=== PATIENT | male | born 1975 | race African-American/Black ===

== ENCOUNTER 2018-04-08 12:46 | Emergency (ER) | payer MEDICAID, MEDICARE ==
[~2018-04-08] VITALS: Ht 188 cm; Wt 76.2 kg
[~2018-04-08 12:46] MED LIST: CLINDAMYCIN HC300 MG ORAL; GABAPENTIN100 MG PO; HYDROCORTISONE28 G2 TP; KEFLEX500 MG PO; NAPROXEN375 MG PO; OXYCODONE IR15 MG PO; PAMELOR10 MG PO
[2018-04-08 13:16] VITALS: BP 103/66
--- NOTE | 2018-04-08 13:41 | NUR ---
ED Nurse Note: patient walked into ED. need meds refilled, hasnt had since last week. relates having a itching rash x3 weeks
--- NOTE | 2018-04-08 13:51 | Emergency Room Report ---
History of Present Illness General Chief Complaint: Medication Refill Source: Patient Present Illness HPI 42-year-old male patient presents the ER complaining of rash for the past 3 weeks and requesting refill of medications. Patient states rash started present for 3 weeks, states extremely pruritic. Denies fever, chest pain, shortness of breath. Also requesting refill of for medications, including Abilify 20 mg, buspirone 20 mg, albuterol and Advair inhalers. States that he takes the Abilify and buspirone for paranoid schizophrenia and anxiety respectively, states takes albuterol and Advair inhaler for asthma symptoms. Denies asthma symptoms currently. States has not taken medication for the past few days. Denies thoughts of hurting himself or others. Denies other acute aggravating or relieving symptoms. Allergies: Coded Allergies: BENZTROPINE MESYLATE (Verified Allergy, Unknown, 10/08/13) HALOPERIDOL (Verified Allergy, Unknown, 10/08/13) HALOPERIDOL LACTATE (Verified Allergy, Unknown, 10/08/13) SULFA (SULFONAMIDE ANTIBIOTICS) (Verified Allergy, Unknown, 10/08/13) TRAMADOL (Verified Allergy, Unknown, 10/08/13) Patient History Past Medical History: see triage record Reviewed Nursing Documentation: PMH: Agreed; PSxH: Agreed Nursing Documentation-PMH Past Medical History: No History, Except For Hx Neurological Problems: Yes - chronic pain Review of Systems All Other Systems: negative except mentioned in HPI Physical Exam Vital Signs Date Time Temp Pulse Resp B/P (MAP) Pulse Ox O2 Delivery O2 Flow Rate FiO2 04/08/18 13:16 99.0 93 20 103/66 98 Room Air Sp02 EP Interpretation: reviewed, normal General Appearance: well appearing, no apparent distress, alert, GCS 15, non- toxic Head: normocephalic, atraumatic Eyes: bilateral eye normal inspection, bilateral eye PERRL ENT: hearing grossly normal, normal pharynx, no angioedema, normal voice, uvula midline, moist mucus membranes Neck: full range of motion Respiratory: lungs clear, normal breath sounds, no rhonchi, no respiratory distress, no accessory muscle use, no wheezing, speaking full sentences Cardiovascular #1: regular rate, rhythm, no edema Gastrointestinal: non tender, soft, no mass, non-distended, no guarding, no rebound Genitourinary: no CVA tenderness Musculoskeletal: back normal, digits/nails normal, gait/station normal, normal range of motion, non-tender Neurologic: alert, oriented x3, responsive, motor strength/tone normal, sensory intact Psychiatric: mood/affect normal Skin: rash - Hyperpigmented macules and excoriations, linear excoriations, no surrounding erythema or edema Lymphatic: no adenopathy Medical Decision Making PA Attestation Dr. Salmon is my supervising Physician whom patient management has been discussed with. Diagnostic Impression: Primary Impression: Encounter for medication refill Additional Impression: Rash and other nonspecific skin eruption ER Course pt. presents to the ED requesting prescription refill. Initial diagnosis considered include but not limited to medication refill, scabies, contact dermatitis, fungal infection, eczema, allergic reaction. Vital signs: are WNL, pt. is afebrile ORDERS: PE shows rash, remainder of physical exam benign, denies shortness of breath, lungs clear to auscultation. Informed patient would provide refill of Abilify, albuterol, Advair, would not provide refill of buspirone, needs to follow-up with mental health urgent care or primary care provider for further refills of medications. Provided with contact information for mental health urgent cares. Rash consistent with possible scabies, will provide patient with treatment. Advised patient to take Claritin during the day and Benadryl at night for itching symptoms. Wash all clothes and bedding. Contact primary care provider for further treatment. Informed patient ER cannot provide refills in the future; followup, management and prescription of long-term medications must be performed by primary care provider. DISCHARGE: At this time pt is stable for d/c to home. Patient is resting comfortably, in no acute distress, nontoxic appearing, talking without difficulty. Patient to take medications as instructed Will provide with patient care instructions and any necessary prescriptions. Care plan and follow-up instructions provided. Patient instructed to follow-up with primary care provider in 3 - 5 days. Patient questions asked and answered. Patient reports understanding and agreement to treatment plan. ER precautions given. Patient instructed to return to ER immediately for any new or worsening of symptoms including but not limited to increasing SOB, persistent fever. - Please note that this Emergency Department Report was dictated using Clavistercell manager technology software, occasionally this can lead to erroneous entry secondary to interpretation by the dictation equipment. Last Vital Signs Date Time Temp Pulse Resp B/P (MAP) Pulse Ox O2 Delivery O2 Flow Rate FiO2 04/08/18 13:16 99.0 93 20 103/66 98 Room Air Disposition: HOME, SELF-CARE Condition: Stable Scripts Permethrin* (ELIMITE*) 60 Gm Cream..g. 1 APPLIC TOPIC ONCE, #60 GM 0 Refills Apply cream from head to toe; leave on for 8-14 hours before washing off with water; may reapply in 1 week if live mites appear. Prov: Ha Regan 04/08/18 Fluticasone/Salmeterol (ADVAIR HFA 115-21 MCG INHALER) 12 Gm Hfa.aer.ad 1 PUFFS INH EVERY 12 HOURS, #1 EA Prov: Ha Regan 04/08/18 Albuterol Sulfate* (ALBUTEROL SULFATE MDI*) 8.5 Gm Hfa.aer.ad 2 PUFF INH Q6H, #1 INH 0 Refills Prov: Ha Regan 04/08/18 Aripiprazole* (ABILIFY*) 20 Mg Tablet 20 MG ORAL DAILY, #15 TAB Prov: Ha Regan 04/08/18 Patient Instructions: Medicine Refill at the Emergency Department, Scabies, Pediatric Additional Instructions: Followup with primary care provider in 3 -5 days. Request referral to dermatology as needed. Follow-up with mental health professional and/or mental health urgent care for further evaluation and treatment. Do not scratch or itch. Apply cool compresses to affected area. Wash all clothes and bedding. Take medications as directed. SE Benadryl drowsiness, do not take prior to drinking, driving, operating heavy machinery. Take Claritin during the day and Benadryl at night for itching symptoms. Patient questions asked and answered. ER precautions given, patient instructed to return to ER immediately for any new or worsening of symptoms. [facility] Ha Regan Apr 08, 2018 13:51
[2018-04-08] MEDS ORDERED: ALBUTEROL SULF8.5 GM INH (13:59)
[2018-04-08] MEDS ORDERED: ABILIFY20 MG ORAL (13:59)
[2018-04-08] MEDS ORDERED: PERMETHRIN60 GM TOPIC (13:59)
[2018-04-08] MEDS ORDERED: ADVAIR HFA 115-12 GM INH (13:59)
[2018-04-08 15:26] VITALS: BP 103/66
--- NOTE | 2018-04-08 15:28 | NUR ---
ED Nurse Note: Patient is being discharged, cleared by ER PA. Discharge instructions/paper/prescription given, explained, patient verbalized understanding, received signature on the paper. ID band removed. patient provided with sandwich/juice. patient stated that he is going back to [facility], that is the [place] [facility] that he resides, he showed the ID card for that, patient ambulated out of ED steady gait with all his belonging stating that he can take public transportation.
== END 2018-04-08 14:27 | disposition home or self-care (01) ==
LOC: EMR 13:50
DX: Z76.0 Encounter for issue of repeat prescription (principal); R21 Rash and other nonspecific skin eruption; F20.0 Paranoid schizophrenia; F41.9 Anxiety disorder, unspecified; J45.909 Unspecified asthma, uncomplicated; Z88.2 Allergy status to sulfonamides; Z88.5 Allergy status to narcotic agent; G89.29 Other chronic pain
CPT/HCPCS: 99282

== ENCOUNTER 2018-09-01 12:15 | Emergency (ER) | payer MEDICARE, MEDICAID ==
[~2018-09-01] VITALS: Ht 188 cm; Wt 77.1 kg
[~2018-09-01 12:15] MED LIST changes: +ABILIFY20 MG ORAL; +ADVAIR HFA 115-12 GM INH; +ALBUTEROL SULF8.5 GM INH; +PERMETHRIN60 GM TOPIC
[2018-09-01] MEDS ORDERED: TRUVADA 200 MG1 EAC1 ORAL (12:26)
--- NOTE | 2018-09-01 12:44 | Emergency Room Report ---
History of Present Illness General Chief Complaint: Skin Rash/Abscess Source: Patient Present Illness HPI 43-year-old male with history of HIV x8 years and paranoid schizophrenia x10 years here requesting an medication refill on his Abilify and Truvada. Patient reports that he last saw his psychiatrist and his primary care provider 2 months ago and and is in the process of changing his insurance. Patient took both Abilify and Truvada last 2 days ago. Denies visual and auditory hallucinations. Denies SI and HI. Patient also complains of multiple lesions on his arms and his knee and he keeps squeezing them saying that I need to drain them. Patient reports that he has had those for over a long time however it is not pruritic nor painful. Denies fever and chills, shortness of breath, palpitation, nausea vomiting, abdominal pain. Patient does not have the bottles of his medications with him Allergies: Coded Allergies: BENZTROPINE MESYLATE (Verified Allergy, Unknown, 10/08/13) HALOPERIDOL (Verified Allergy, Unknown, 10/08/13) HALOPERIDOL LACTATE (Verified Allergy, Unknown, 10/08/13) SULFA (SULFONAMIDE ANTIBIOTICS) (Verified Allergy, Unknown, 10/08/13) TRAMADOL (Verified Allergy, Unknown, 10/08/13) Patient History Past Medical History: see triage record Past Surgical History: unable to obtain Pertinent Family History: none Immunizations: UTD Reviewed Nursing Documentation: PMH: Agreed; PSxH: Agreed Nursing Documentation-PMH Past Medical History: No History, Except For Hx Cardiac Problems: No - HIV Hx Hypertension: No Hx Pacemaker: No Hx Asthma: Yes Hx COPD: No Hx Diabetes: No Hx Cancer: No Hx Gastrointestinal Problems: No Hx Dialysis: No History Of Psychiatric Problem: Yes - Paranoid Schizophrenia Hx Neurological Problems: Yes - chronic pain, neuropathy Hx Cerebrovascular Accident: No Hx Seizures: No Review of Systems All Other Systems: negative except mentioned in HPI Physical Exam Vital Signs Date Time Temp Pulse Resp B/P (MAP) Pulse Ox O2 Delivery O2 Flow Rate FiO2 09/01/18 12:22 98.1 79 16 120/75 (90) 98 Room Air Sp02 EP Interpretation: reviewed, normal General Appearance: normal inspection, well appearing Head: normocephalic, atraumatic Eyes: bilateral eye normal inspection, bilateral eye PERRL ENT: normal ENT inspection, normal pharynx Neck: normal inspection, full range of motion, supple Respiratory: normal inspection, chest non-tender, lungs clear, no wheezing Cardiovascular #1: normal inspection, no edema, no murmur, normal capillary refill Gastrointestinal: normal inspection, non tender, soft Rectal: deferred Genitourinary: no CVA tenderness Musculoskeletal: back normal, digits/nails normal, gait/station normal Neurologic: normal inspection, alert, oriented x3, responsive Psychiatric: normal inspection, judgement/insight normal, memory normal, no suicidal/homicidal ideation, no delusions Skin: warm/dry, rash - Multiple flat macular lesions on arms and knee no pus drainage noted however patient keeps picking on them. Lymphatic: normal inspection, no adenopathy Medical Decision Making PA Attestation All my diagnosis and treatment plans were reviewed ad discussed with my supervising physician Dr. Hyde Diagnostic Impression: Primary Impression: Medication refill Additional Impressions: HIV (human immunodeficiency virus infection) Schizophrenia Staphylococcal infection of skin ER Course 43-year-old male with history of HIV x8 years and paranoid schizophrenia x10 years here requesting an medication refill on his Abilify and Truvada. Patient reports that he last saw his psychiatrist and his primary care provider 2 months ago and and is in the process of changing his insurance. Patient took both Abilify and Truvada last 2 days ago. Denies visual and auditory hallucinations. Denies SI and HI. Patient also complains of multiple lesions on his arms and his knee and he keeps squeezing them saying that I need to drain them. Patient reports that he has had those for over a long time however it is not pruritic nor painful. Denies fever and chills, shortness of breath, palpitation, nausea vomiting, abdominal pain. Patient does not have the bottles of his medications with him Ddx considered but are not limited to: Staph infection of skin, cellulitis, eczema, HIV, paranoid schizophrenia currently symptomatic, paranoid schizophrenia asymptomatic Vital signs: are WNL, pt. is afebrile H&PE are most consistent with: Paranoid schizophrenia asymptomatic, HIV positive, localized Staphylococcus infection of the skin ORDERS: Truvada for 7-day supply, Abilify for 7-day supply, Keflex, triamcinolone cream I decided the patient needs to be treated with antibiotics due to picking on the lesions and also low immune status due to his HIV status ED INTERVENTIONS: None required at this time. DISCHARGE: At this time pt. is stable for d/c to home. Will provide printed patient care instructions, and any necessary prescriptions. Care plan and follow up instructions have been discussed with the patient prior to discharge. I gave patient a list of different clinics to walk-in for establishing a new primary doctor and recieving his medications Last Vital Signs Date Time Temp Pulse Resp B/P (MAP) Pulse Ox O2 Delivery O2 Flow Rate FiO2 09/01/18 12:22 98.1 79 16 120/75 (90) 98 Room Air Disposition: HOME, SELF-CARE Condition: Stable Scripts Triamcinolone Acet (Triamcinolone Acetonide) 80 Gm Cream..g. 2 GM APPLIC TID, #80 GM Prov: David Thorne 09/01/18 Emtricitabine/Tenofovir (Truvada 200 mg-300 mg Tablet) 1 Each Tablet 1 TAB ORAL DAILY for 7 Days, #7 TAB Prov: David Thorne 09/01/18 Aripiprazole* (ABILIFY*) 20 Mg Tablet 20 MG ORAL DAILY for 7 Days, #7 TAB Prov: David Thorne 09/01/18 Cephalexin* (KEFLEX*) 500 Mg Capsule 500 MG ORAL EVERY 6 HOURS for 7 Days, #28 CAP Prov: David Thorne 09/01/18 Referrals: [facility] + [facility] Psych ER - Peds ER - Patient Instructions: HIV Infection and AIDS, Schizophrenia, Staphylococcal Infection Additional Instructions: Follow-up with a primary care provider and the clinic today for further assessment and medical evaluation David Thorne Sep 01, 2018 12:44
[2018-09-01] MEDS ORDERED: ABILIFY20 MG ORAL (12:47)
[2018-09-01] MEDS ORDERED: CEPHALEXIN500 MG ORAL (12:47)
[2018-09-01] MEDS ORDERED: TRUVADA1 TAB ORAL (12:47)
[2018-09-01] MEDS ORDERED: KENALOG 0.1% CR15 GM APPLIC (12:47)
[2018-09-01 12:59] VITALS: BP 121/72
== END 2018-09-01 12:55 | disposition home or self-care (01) ==
LOC: EMR 12:32
DX: Z76.0 Encounter for issue of repeat prescription (principal); B20 Human immunodeficiency virus [HIV] disease; F20.9 Schizophrenia, unspecified; B95.8 Unspecified staphylococcus as the cause of diseases classified elsewhere; Z88.2 Allergy status to sulfonamides; Z88.8 Allergy status to other drugs, medicaments and biological substances; G62.9 Polyneuropathy, unspecified
CPT/HCPCS: 99282

== ENCOUNTER 2019-03-01 18:28 | Emergency (ER) | payer MEDICARE, MEDICAID ==
[~2019-03-01] VITALS: Ht 188 cm; Wt 74.8 kg
[~2019-03-01 18:28] MED LIST changes: +CEPHALEXIN500 MG ORAL; +KENALOG 0.1% CR15 GM APPLIC; +TRUVADA 200 MG1 EAC1 ORAL; +TRUVADA1 TAB ORAL
--- NOTE | 2019-03-01 18:44 | NUR ---
ED Nurse Note: Patient was called, not in the waiting room.
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
[2019-03-01 19:12] VITALS: BP 109/66
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
[2019-03-01] MEDS ORDERED: VOLTAREN100 G1 TP (20:54)
[2019-03-01] MEDS ORDERED: IBUPROFEN600 MG ORAL (20:54)
[2019-03-01 21:00] VITALS: BP 109/66
--- NOTE | 2019-03-01 21:00 | NUR ---
ER DISCHARGE NOTE: Patient is cleared to be discharged per ERMD, pt is aox4, on room air, with stable vital signs. pt was given dc and prescription instructions, pt was able to verbalize understanding, pt id band removed. pt is able to ambulate with steady gait. pt took all belongings.
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
== END 2019-03-01 21:00 | disposition home or self-care (01) ==
LOC: EMR 19:35
DX: M25.572 Pain in left ankle and joints of left foot (principal); M25.562 Pain in left knee; G89.29 Other chronic pain; M54.9 Dorsalgia, unspecified; V43.62XA Car passenger injured in collision with other type car in traffic accident, initial encounter; Y92.410 Unspecified street and highway as the place of occurrence of the external cause; Z88.8 Allergy status to other drugs, medicaments and biological substances; Z88.2 Allergy status to sulfonamides; B20 Human immunodeficiency virus [HIV] disease; G62.9 Polyneuropathy, unspecified
CPT/HCPCS: 99284

== ENCOUNTER 2019-03-08 14:06 | Emergency (ER) | payer MEDICAID, MEDICARE ==
[~2019-03-08] VITALS: Ht 188 cm; Wt 77.1 kg
[~2019-03-08 14:06] MED LIST changes: +IBUPROFEN600 MG ORAL; +VOLTAREN100 G1 TP
[2019-03-08 14:55] VITALS: BP 101/64
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
[2019-03-08] MEDS ORDERED: IBUPROFEN600 MG ORAL (16:29)
[2019-03-08 16:49] VITALS: BP 101/64
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
== END 2019-03-08 16:49 | disposition home or self-care (01) ==
LOC: EMR 14:42
DX: R07.9 Chest pain, unspecified (principal); M54.2 Cervicalgia; M54.9 Dorsalgia, unspecified; Z88.2 Allergy status to sulfonamides; Z88.8 Allergy status to other drugs, medicaments and biological substances; E11.40 Type 2 diabetes mellitus with diabetic neuropathy, unspecified; V49.9XXA Car occupant (driver) (passenger) injured in unspecified traffic accident, initial encounter; Y92.410 Unspecified street and highway as the place of occurrence of the external cause; B20 Human immunodeficiency virus [HIV] disease
CPT/HCPCS: 71046; 72020; 72040; 72070; 73610; Z7502; 99284

== ENCOUNTER 2019-03-11 15:41 | Emergency (ER) | payer MEDICAID ==
[~2019-03-11] VITALS: Ht 188 cm; Wt 72.6 kg
[2019-03-11] MEDS ORDERED: TRUVADA 200 MG1 EAC1 ORAL (16:08)
[2019-03-11 16:12] VITALS: BP 103/68
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
== END 2019-03-11 16:14 | disposition home or self-care (01) ==
LOC: EMR 16:05
DX: Z76.0 Encounter for issue of repeat prescription (principal); F11.29 Opioid dependence with unspecified opioid-induced disorder; G89.29 Other chronic pain; G62.9 Polyneuropathy, unspecified; J45.909 Unspecified asthma, uncomplicated; Z88.5 Allergy status to narcotic agent; Z88.2 Allergy status to sulfonamides; Z88.8 Allergy status to other drugs, medicaments and biological substances
CPT/HCPCS: 99282

== ENCOUNTER 2019-05-27 10:56 | Emergency (ER) | payer MEDICAID ==
[~2019-05-27] VITALS: Ht 188 cm; Wt 74.8 kg
[2019-05-27 11:10] VITALS: BP 125/81
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
[2019-05-27] MEDS ORDERED: CLOTRIMAZOLE15 GM TOPIC ×2 (11:28→11:31)
[2019-05-27] MEDS ORDERED: CEPHALEXIN500 MG ORAL ×2 (11:28→11:31)
[2019-05-27 11:36] VITALS: BP 125/81
--- NOTE | 2019-05-27 11:37 | NUR ---
ED Nurse Note: Pt cleared by health care Provider for discharge. DC instructions/prescription was given and explained to pt and verbalized understanding of teachings. All medical deviecs such as ID band removed. Pt is AAO x4, ambulatory and left with all personal belongings.
--- NOTE | 2019-05-27 13:29 | Emergency Room Report ---
History of Present Illness General Chief Complaint: Skin Rash/Abscess Source: Patient Present Illness HPI 44-year-old male presents with rash to the scalp. Patient states that he has had the rash to the scalp for months with hair loss. He saw his doctor in clinic and was prescribed topical antibiotic ointment however this is not improved. Patient states he does frequently squeeze and pull hair from the area. He denies any fevers nausea or vomiting. Allergies: Coded Allergies: BENZTROPINE MESYLATE (Verified Allergy, Unknown, 10/08/13) HALOPERIDOL (Verified Allergy, Unknown, 10/08/13) HALOPERIDOL LACTATE (Verified Allergy, Unknown, 10/08/13) SULFA (SULFONAMIDE ANTIBIOTICS) (Verified Allergy, Unknown, 10/08/13) TRAMADOL (Verified Allergy, Unknown, 10/08/13) Patient History Past Medical History: see triage record Reviewed Nursing Documentation: PMH: Agreed; PSxH: Agreed Nursing Documentation-PMH Past Medical History: No History, Except For Hx Hypertension: No Hx Pacemaker: No Hx Asthma: Yes Hx COPD: No Hx Diabetes: Yes Hx Cancer: No Hx Gastrointestinal Problems: No Hx Dialysis: No Hx Neurological Problems: Yes - chronic pain, neuropathy Hx Cerebrovascular Accident: No Hx Seizures: No Review of Systems All Other Systems: negative except mentioned in HPI Physical Exam Vital Signs Date Time Temp Pulse Resp B/P (MAP) Pulse Ox O2 Delivery O2 Flow Rate FiO2 05/27/19 11:02 99.1 97 18 125/81 (96) 99 Room Air Sp02 EP Interpretation: reviewed, normal General Appearance: well appearing, no apparent distress Head: normocephalic, atraumatic, other - Posterior scalp with small area of alopecia with a central clearing. Excoriation noted. Eyes: bilateral eye PERRL, bilateral eye EOMI ENT: hearing grossly normal, moist mucus membranes Neck: full range of motion, supple Respiratory: lungs clear, normal breath sounds, no rhonchi, no respiratory distress, no retraction, no wheezing Cardiovascular #1: normal peripheral pulses, regular rate, rhythm, no murmur Gastrointestinal: non tender, soft, non-distended, no guarding Neurologic: alert, oriented x3, no focal defects Skin: normal color, warm/dry Medical Decision Making Diagnostic Impression: Primary Impression: Tinea capitis ER Course Differential included but not limited to tinea capitis, traction alopecia, excoriation, cellulitis, infected cyst to name a few. On exam patient nontoxic. The small central clearing did have an appearance of tinea capitis however unfortunately patient constantly excoriates the area so superinfection was possible. I did prescribe topical antifungal in addition to a p.o. antibiotic and will have patient follow-up with his primary clinic. Last Vital Signs Date Time Temp Pulse Resp B/P (MAP) Pulse Ox O2 Delivery O2 Flow Rate FiO2 05/27/19 11:36 99.1 97 18 125/81 99 Room Air Disposition: HOME, SELF-CARE Condition: Stable Scripts Clotrimazole* (LOTRIMIN*) 15 Gm Cream..g. 1 APPLIC TOPIC TWICE A DAY for 10 Days, #30 GM Prov: Abelardo Alicea M.D. 05/27/19 Cephalexin* (KEFLEX*) 500 Mg Capsule 500 MG ORAL EVERY 6 HOURS for 7 Days, #28 CAP Prov: Abelardo Alicea M.D. 05/27/19 Referrals: [facility]P) [facility] Patient Instructions: Scalp Ringworm, [id number] Additional Instructions: Please avoid picking at the area of your scalp. Please avoid pulling out any more hair. Follow-up with your primary clinic. Abelardo Alicea M.D. May 27, 2019 13:29
== END 2019-05-27 11:41 | disposition home or self-care (01) ==
LOC: EMR 11:30
DX: B35.0 Tinea barbae and tinea capitis (principal); J45.909 Unspecified asthma, uncomplicated; E11.9 Type 2 diabetes mellitus without complications; Z88.2 Allergy status to sulfonamides; Z88.5 Allergy status to narcotic agent; Z88.8 Allergy status to other drugs, medicaments and biological substances
CPT/HCPCS: 99282